=== PATIENT | male | born 1990 | race Caucasian/White ===

== ENCOUNTER 2020-11-06 15:43 | Outpatient (REF) | payer OTHER, SELFPAY | END 2020-11-06 15:44 | disposition home or self-care (01) | LOC: HO.LAB 15:43 | PROVIDERS: Visit Provider Internal Medicine | DX: Z20.828 Contact with and (suspected) exposure to other viral communicable diseases (principal) | CPT/HCPCS: C9803; U0003 ==

== ENCOUNTER 2020-11-09 15:57 | Outpatient (REF) | payer OTHER, SELFPAY | END 2020-11-09 15:58 | disposition home or self-care (01) | LOC: HO.LAB 15:57 | PROVIDERS: Visit Provider Internal Medicine | DX: Z20.828 Contact with and (suspected) exposure to other viral communicable diseases (principal) | CPT/HCPCS: C9803; U0003 ==

== ENCOUNTER 2020-11-16 14:37 | Outpatient (REF) | payer OTHER, SELFPAY | END 2020-11-16 14:38 | disposition home or self-care (01) | LOC: HO.LAB 14:37 | PROVIDERS: PCP Internal Medicine; Visit Provider Internal Medicine | DX: Z20.828 Contact with and (suspected) exposure to other viral communicable diseases (principal) | CPT/HCPCS: C9803; U0003 ==

== ENCOUNTER 2021-01-15 08:47 | Emergency (ER) | payer OTHER, SELFPAY ==
--- NOTE | ~2021-01-15 | CT_ITS ---
EXAMINATION: CT ABDOMEN AND PELVIS WITHOUT CONTRAST CLINICAL INFORMATION: Renal colic. COMPARISON: None TECHNIQUE: Multidetector volumetric imaging was performed from the superior aspect of the liver through the pubic symphysis. Sagittal and coronal reformatted images were obtained on the technologist's workstation. No oral or intravenous contrast. This CT examination was performed using dose optimization techniques as appropriate, variously including the following: *Automated exposure control *Adjustment of mA and/or kV according to patient size (this includes techniques or standardized protocols for targeted exams where dose is matched to indication/reason for exam; i.e. extremities or head) *Use of iterative reconstruction technique DLP: 787 mGy-cm FINDINGS: LUNG BASES: The visualized lung bases are unremarkable. LIVER, GALLBLADDER, AND BILIARY TREE: The liver is normal in size, shape, and attenuation. No focal hepatic lesion or biliary ductal dilatation is present. The gallbladder is unremarkable with no evidence of radiopaque gallstones, gallbladder wall thickening, or obvious pericholecystic inflammatory changes. PANCREAS: Unremarkable. SPLEEN: Unremarkable. ADRENAL GLANDS: Unremarkable. KIDNEYS AND URETERS: There is mild right hydronephrosis and proximal hydroureter secondary to a 4 mm proximal ureteral calculus at level of L3. No perinephric stranding. There are numerous bilateral nonobstructing intrarenal calculi, over 10 on each side, under 5 mm. There is a large cyst upper pole left kidney 7.5 x 6.5 x 7.4 cm, homogeneous water attenuation and incidental punctate rim calcification upper aspect. Smaller cyst interpolar right kidney 1.7 cm, water attenuation. BLADDER: Unremarkable. GASTROINTESTINAL TRACT: There is no bowel obstruction or inflammatory changes in the bowel mesentery. No ascites or fluid collection. The appendix is normal. ABDOMINAL WALL: No significant hernia is appreciated. Borderline fat-containing umbilical hernia under 3 cm. LYMPH NODES: No lymphadenopathy. VASCULAR: Unremarkable. PELVIC VISCERA: Unremarkable. OSSEOUS STRUCTURES: Unremarkable. CT/CT abdomen pelvis wo con IMPRESSION: 1. Mild right hydronephrosis secondary to 4 mm proximal ureteral calculus, level of L3. 2. Numerous bilateral small nonobstructing intrarenal calculi, over 10 on each side. 3. Cyst upper pole left kidney 7.5 cm and interpolar right kidney 1.7 cm.
[2021-01-15 08:50] VITALS: BP 164/105; PULSE 87; RESP 18; TEMP 37.2; O2SAT 97; BMI 36.0
--- NOTE | 2021-01-15 08:59 | ED.GENADULT ---
HPI - General Adult General Chief complaint: Nausea/Vomiting/Diarrhea Stated complaint: KIDNEY STONE Time Seen by Provider: 01/15/21 08:55 Source: patient Mode of arrival: ambulatory Limitations: no limitations History of Present Illness HPI narrative: 30 yo male with past medical history of renal colic here with right flank pain which radiates to RLQ since 6 am with 2 episodes of vomiting, urinary frequency/dsyuria. No diarrhea/fevers/chills. No testicular pain, penile discharge. Related Data Previous Rx's Medication Instructions Recorded hydrocodone-acetaminophen 1 tab PO Q4-6H PRN #10 tab 01/15/21 ibuprofen 800 mg PO Q8H PRN #20 tab 01/15/21 tamsulosin [Flomax] 0.4 mg PO DAILY #30 cap 01/15/21 Allergies Allergy/AdvReac Type Severity Reaction Status Date / Time No Known Allergies Allergy Verified 01/15/21 08:52 Review of Systems Review of Systems: Yes all other systems are reviewed and are negative Constitutional: Constitutional: Reports no additional constitutional complaints, Denies body ache(s), Denies chills, Denies fever(s), Denies headache(s) and Denies weakness Eyes: Eyes: Reports no additional eye complaints and Denies change in vision ENT: Reports system reviewed and no additional complaints, except as documented, Denies dizziness, Denies headache(s), Denies nasal congestion, Denies nasal discharge and Denies neck pain Cardiovascular: Cardiovascular: Reports no additional cardiovascular complaints, Denies chest pain, Denies leg edema and Denies dyspnea Respiratory: Respiratory: Reports no additional respiratory complaints, Denies cough and Denies dyspnea Gastrointestinal: Gastrointestinal: Reports no additional gastrointestinal complaints, Denies abdominal pain, Denies diarrhea, Denies nausea and Reports vomiting Genitourinary: Genitourinary: Denies urinary incontinence Musculoskeletal: Musculoskeletal: Reports no additional musculoskeletal complaints, Reports back pain, Denies arthralgias, Denies joint swelling, Denies neck pain, Denies numbness and Denies tingling Integumentary/Breasts: Skin/Breast: Reports system reviewed and no additional complaints, except as docu and Denies rash Neurologic: Reports system reviewed and no additional complaints, except as documented, Denies Abnormal speech present, Denies dizziness, Denies headache(s), Denies numbness, Denies tingling and Denies weakness [facility] Past Medical History Attestation statement: The following information was validated with the patient. Source: old records reviewed and nursing notes reviewed Medical History Kidney stone No known health problems Social History Social History Advance Directives: No Advance Directives Information Provided: No Physical Exam Vital Signs: Vital Signs: Last Vital Signs Temp 98.9 F 01/15/21 08:50 Pulse 87 01/15/21 08:50 Resp 18 01/15/21 08:50 BP 164/105 H 01/15/21 08:50 Pulse Ox 97 01/15/21 08:50 Body Mass Index 36.0 Const: General: cooperative, healthy appearing, comfortable and no acute distress Orientation/consciousness: patient oriented x3 Limitations: no limitations HENMT: Head: Yes normal to inspection Ears: hearing grossly normal bilaterally General nose exam: Normal external nose present Face and sinus: Yes normal facial exam Mouth: Normal oral and palatal mucosa present Throat: Yes posterior oropharynx normal Eyes: General: appearance normal, both eyes and all related structures Pupils: Equal, round and reactive pupils present Neck: Neck: Yes normal visual inspection Chest: Chest palpation & inspection: normal inspection of the chest Resp: Effort & Inspection: normal respiratory effort Auscultation: clear to auscultation bilaterally Cardio: Rate: regular rate Rhythm: regular rhythm Peripheral pulses: Peripheral pulses 2+ throughout GI: Inspection: Yes normal to inspection Palpation (GI): Soft to palpation and Tenderness to palpation present (GI) (mild RLQ with no rebound or guarding ) Auscultation: normal bowel sounds : General: Yes CVA tenderness (Right ) Back/Spine/Pelvis: Back: CVA tenderness (Right ) Thoracic/Lumbar Spine: thoracic and lumbar spine normal to inspection Skin: General skin exam: no rashes or lesions noted Neuro: General: patient oriented x3, no focal motor deficits and normal sensation to monofilament Cranial nerves: Yes Equal, round and reactive pupils present Cognition (Neuro): normal cognition Speech: No Abnormal speech present Gait exam (Neuro): Normal gait present Motor exam (neuro): 5/5 motor strength present throughout Extrem: General: Yes normal to inspection Course Course Course Narrative: R flank pain with radiation to RLQ since waking with urinary symptoms, vomiting. Will need labs, UA, CT A/P. Provide NSB, analgesia. 1000-CT shows mild right hydro secondary to a 4 mm proximal ureteral stone. Pending labs. UA NOT infected. Patient's pain is improving. 1100-labs unremarkable with exception of mild leukocytosis which is up from vomiting and not from underlying infection. Patient tells me his pain is resolved and he is tolerating p.o.. Will have him discharged and follow up with Urology outpatient. Reviewed worrisome signs and symptoms and when to return to the emergency department. Comfortable discharge home. Medical Decision Making MDM Narrative Medical decision making narrative: Appendicitis, renal colic, pyelo, UTI Medical Records Medical records reviewed: Yes I reviewed the patient's medical records. Lab Data Lab results reviewed: Yes I reviewed the patient's lab results. Result diagrams: 01/15/21 09:11 01/15/21 08:49 Labs: Lab Results 01/15/21 01/15/21 01/15/21 Range/Units 08:49 09:11 09:11 WBC 12.5 H (4.8-10.8) X10*3/uL RBC 5.03 (4.60-5.80) X10*6/uL Hgb 14.7 (14.0-18.0) g/dl Hct 43.0 (42-52) % MCV 85.5 (80-98) fL MCH 29.2 (27.0-33.0) pg MCHC 34.2 (31.0-36.0) g/dl RDW 12.4 (11.0-16.0) % Plt Count 184 (160-400) X10*3/uL MPV 10.8 (9.4-12.4) fL Immature Gran % (Auto) 0.7 H (0.0-0.4) % Neut % (Auto) 61.9 (45-73) % Lymph % (Auto) 27.3 (20-40) % [place] % (Auto) 7.8 (2-11) % Eos % (Auto) 2.2 (0-4) % Baso % (Auto) 0.1 (0-2) % Lymph # (Auto) 3.4 (1.2-4.9) X10*3/uL [place] # (Auto) 1.0 (0.1-1.2) X10*3/uL Eos # (Auto) 0.3 (0.0-0.4) X10*3/uL Baso # (Auto) 0.0 (0.0-0.2) X10*3/uL Abs Immat Gran (auto) 0.09 H (0.00-0.03) X10*3/uL Absolute Neuts (auto) 7.7 (2.0-8.3) X10*3/uL Absolute Nucleated RBC 0.000 (0.0-0.012) X10*3/uL Nucleated RBC % (auto) 0.0 (0.0-0.2) /100WBC Hold Blue Top SEE NOTE Sodium 138 (135-145) mmol/L Potassium 3.4 (3.3-5.1) mmol/L Chloride 105 (96-108) mmol/L Carbon Dioxide 23 (22-29) mmol/L Anion Gap 13 (12-20) BUN 11 (9-16) mg/dL Creatinine 1.05 (0.5-1.4) mg/dL Estim Creat Clear Calc 117.3 Estimated GFR > 60 Random Glucose 103 (60-115) mg/dL Calcium 9.2 (8.4-10.2) mg/dL Total Bilirubin 0.5 (0.0-1.0) mg/dL Direct Bilirubin < 0.2 (0.0-0.5) mg/dL AST 15 (5-37) U/L ALT 20 (0-40) U/L Alkaline Phosphatase 47 (39-117) U/L Total Protein 6.8 (6.5-8.0) g/dL Albumin 4.4 (3.5-5.0) g/dL Urine Color Urine Appearance Urine pH (5.0-8.0) Ur Specific [place] (1.005-1.025) Urine Protein (NEG-TRACE) MG/DL Urine Glucose (UA) (NEG) MG/DL Urine Ketones (NEG) MG/DL Urine Blood (NEG) Urine Nitrite (NEG) Ur Leukocyte Esterase (NEG) Urine RBC (0) /HPF Urine WBC (0-4) /HPF Ur Squamous Epith Cells /LPF Urine Bacteria /LPF Urine Mucus /LPF 02/19/21 Range/Units 09:11 WBC (4.8-10.8) X10*3/uL RBC (4.60-5.80) X10*6/uL Hgb (14.0-18.0) g/dl Hct (42-52) % MCV (80-98) fL MCH (27.0-33.0) pg MCHC (31.0-36.0) g/dl RDW (11.0-16.0) % Plt Count (160-400) X10*3/uL MPV (9.4-12.4) fL Immature Gran % (Auto) (0.0-0.4) % Neut % (Auto) (45-73) % Lymph % (Auto) (20-40) % [place] % (Auto) (2-11) % Eos % (Auto) (0-4) % Baso % (Auto) (0-2) % Lymph # (Auto) (1.2-4.9) X10*3/uL [place] # (Auto) (0.1-1.2) X10*3/uL Eos # (Auto) (0.0-0.4) X10*3/uL Baso # (Auto) (0.0-0.2) X10*3/uL Abs Immat Gran (auto) (0.00-0.03) X10*3/uL Absolute Neuts (auto) (2.0-8.3) X10*3/uL Absolute Nucleated RBC (0.0-0.012) X10*3/uL Nucleated RBC % (auto) (0.0-0.2) /100WBC Hold Blue Top Sodium (135-145) mmol/L Potassium (3.3-5.1) mmol/L Chloride (96-108) mmol/L Carbon Dioxide (22-29) mmol/L Anion Gap (12-20) BUN (9-16) mg/dL Creatinine (0.5-1.4) mg/dL Estim Creat Clear Calc Estimated GFR Random Glucose (60-115) mg/dL Calcium (8.4-10.2) mg/dL Total Bilirubin (0.0-1.0) mg/dL Direct Bilirubin (0.0-0.5) mg/dL AST (5-37) U/L ALT (0-40) U/L Alkaline Phosphatase (39-117) U/L Total Protein (6.5-8.0) g/dL Albumin (3.5-5.0) g/dL Urine Color YELLOW Urine Appearance CLOUDY Urine pH 6.0 (5.0-8.0) Ur Specific [place] >= 1.030 H (1.005-1.025) Urine Protein TRACE (NEG-TRACE) MG/DL Urine Glucose (UA) NEG (NEG) MG/DL Urine Ketones NEG (NEG) MG/DL Urine Blood 3+ H (NEG) Urine Nitrite NEG (NEG) Ur Leukocyte Esterase NEG (NEG) Urine RBC TNTC H (0) /HPF Urine WBC 0-2 (0-4) /HPF Ur Squamous Epith Cells TRACE /LPF Urine Bacteria NONE /LPF Urine Mucus TRACE /LPF Imaging Data CT scan - abdomen: Attestation: I personally reviewed and interpreted this imaging study as follows: Radiologist's impression: 1. Mild right hydronephrosis secondary to 4 mm proximal ureteral calculus, level of L3. 2. Numerous bilateral small nonobstructing intrarenal calculi, over 10 on each side. 3. Cyst upper pole left kidney 7.5 cm and interpolar right kidney 1.7 cm Discharge Plan Discharge Clinical Impression: Renal colic Patient Disposition: Home, Self-Care Instructions: Renal Colic (ED) Additional Instructions: Increase fluids Strain all urine Follow-up with Urology on Monday Your CT also shows an incidental finding of a left renal cyst. You can follow up with your primary care doctor in regards to this Prescriptions: New tamsulosin [Flomax] 0.4 mg capsule 0.4 mg PO DAILY Qty: 30 RF: 0 ibuprofen 800 mg tablet 800 mg PO Q8H PRN (Reason: pain) Qty: 20 RF: 0 hydrocodone-acetaminophen 5-300 mg tablet 1 tab PO Q4-6H PRN (Reason: pain) Qty: 10 RF: 0 Referrals: Rula Jasmine MD [Primary Care Provider] - 2 days Chava Gupta MD [Physician] - 2 days Discharge Date/Time: 01/15/21 11:22
[2021-01-15] MEDS: Ketorolac Tromethamine 30 MG/ML VIAL IVPUSH (09:16)
[2021-01-15] MEDS: 0.9 % Sodium Chloride 1,000 ML 999 ML IV (09:18)
--- NOTE | 2021-01-15 09:20 | PC.NURSE ---
SEEN BY MLP. IV EST 20 G L AC. BLOOD AND URINE TO LAB. MEDICATED PER ORDERS
[2021-01-15 09:40] LABS: MANUAL DIFF FLAG NO
[2021-01-15 09:41] LABS: Appearance Urine CLOUDY; Color Urine YELLOW; Glucose Urine UA NEG (NEG); Leukocyte Esterase Urine NEG (NEG); Nitrite Urine NEG (NEG); Specific Gravity - Urine >= 1.030 (1.005-1.025); Urine Blood 3+ (NEG); Urine Ketones NEG (NEG); Urine Protein TRACE MG/DL (NEG-TRACE)
[2021-01-15 09:43] LABS: Basophils Percent Auto 0.1 % (0-2); Eosinophils Absolute Auto 0.3 X10*3/uL (0.0-0.4); Eosinophils Percent Auto 2.2 % (0-4); Hemoglobin 14.7 g/dl (14.0-18.0); Imm Gran Abs Auto 0.09 X10*3/uL (0.00-0.03); Imm Gran Pct Auto 0.7 % (0.0-0.4); Lymphocytes Absolute Auto 3.4 X10*3/uL (1.2-4.9); Lymphocytes Percent Auto 27.3 % (20-40); Mean Corpuscular HGB Conc 34.2 g/dl (31.0-36.0); Mean Corpuscular Hemoglobin 29.2 pg (27.0-33.0); Mean Corpuscular Volume 85.5 fL (80-98); Mean Platelet Volume 10.8 fL (9.4-12.4); Monocytes Percent Auto 7.8 % (2-11); Neutrophils Absolute Auto 7.7 X10*3/uL (2.0-8.3); Neutrophils Percent Auto 61.9 % (45-73); Platelet Count 184 X10*3/uL (160-400); Red Blood Count 5.03 X10*6/uL (4.60-5.80); Red Cell Distribution Width 12.4 % (11.0-16.0); White Blood Count 12.5 X10*3/uL (4.8-10.8)
[2021-01-15 09:49] LABS: Mucus Urine TRACE /LPF; RBC Urine TNTC /HPF (0); Squamous Epithelial Cell Urine TRACE /LPF; WBC Urine 0-2 /HPF (0-4)
[2021-01-15 10:16] LABS: Alanine Aminotransferase 20 U/L (0-40); Albumin Level 4.4 g/dL (3.5-5.0); Alkaline Phosphatase 47 U/L (39-117); Anion Gap 13 (12-20); Aspartate Amino Transferase 15 U/L (5-37); Bilirubin Direct < 0.2 mg/dL (0.0-0.5); Bilirubin Total 0.5 mg/dL (0.0-1.0); Blood Urea Nitrogen 11 mg/dL (9-16); Calcium 9.2 mg/dL (8.4-10.2); Carbon Dioxide 23 mmol/L (22-29); Chloride 105 mmol/L (96-108); Creatinine Clr Calc Pharmacy 117.3; Estimated Glomerular Filt Rate > 60; Glucose Random 103 mg/dL (60-115); Potassium 3.4 mmol/L (3.3-5.1); Sodium 138 mmol/L (135-145); Total Protein 6.8 g/dL (6.5-8.0)
[2021-01-15] MEDS: Tamsulosin HCL 0.4 MG CAPSULE PO (10:25)
== END 2021-01-15 11:22 | disposition home or self-care (01) ==
PROVIDERS: Nurse Practitioner Family; Emergency Provider Emergency Medicine; PCP Internal Medicine
DX: N23 Unspecified renal colic (principal); R30.0 Dysuria; Z79.899 Other long term (current) drug therapy
CPT/HCPCS: 36415; 74176; 80048; 80076; 81001; 85025; 96361; 96374; 99282; 99284; J1885

== ENCOUNTER 2021-01-16 04:06 | Emergency (ER) | payer OTHER, SELFPAY ==
[2021-01-16 05:24] VITALS: BP 164/108; PULSE 90; RESP 18; TEMP 36.6; O2SAT 95; BMI 36.0
[2021-01-16 05:51] LABS: MANUAL DIFF FLAG NO
[2021-01-16 05:52] LABS: Basophils Percent Auto 0.1 % (0-2); Eosinophils Absolute Auto 0.2 X10*3/uL (0.0-0.4); Eosinophils Percent Auto 1.5 % (0-4); Hematocrit 40.9 % (42-52); Imm Gran Abs Auto 0.07 X10*3/uL (0.00-0.03); Imm Gran Pct Auto 0.4 % (0.0-0.4); Lymphocytes Absolute Auto 2.8 X10*3/uL (1.2-4.9); Lymphocytes Percent Auto 17.7 % (20-40); Mean Corpuscular HGB Conc 34.2 g/dl (31.0-36.0); Mean Corpuscular Hemoglobin 28.9 pg (27.0-33.0); Mean Corpuscular Volume 84.5 fL (80-98); Mean Platelet Volume 10.1 fL (9.4-12.4); Monocytes Absolute Auto 1.3 X10*3/uL (0.1-1.2); Monocytes Percent Auto 8.5 % (2-11); Neutrophils Absolute Auto 11.3 X10*3/uL (2.0-8.3); Neutrophils Percent Auto 71.8 % (45-73); Platelet Count 155 X10*3/uL (160-400); Red Blood Count 4.84 X10*6/uL (4.60-5.80); Red Cell Distribution Width 12.3 % (11.0-16.0); White Blood Count 15.8 X10*3/uL (4.8-10.8)
[2021-01-16 05:53] LABS: Glucose Urine UA NEG (NEG); Leukocyte Esterase Urine NEG (NEG); Nitrite Urine NEG (NEG); PH 5.5 (5.0-8.0); Specific Gravity - Urine 1.025 (1.005-1.025); Urine Blood 3+ (NEG); Urine Ketones NEG (NEG); Urine Protein NEG (NEG-TRACE)
[2021-01-16 05:54] LABS: Appearance Urine CLEAR; Color Urine YELLOW
[2021-01-16 06:00] LABS: Mucus Urine 1+ /LPF; Squamous Epithelial Cell Urine 2+ /LPF; WBC Urine 0-2 /HPF (0-4)
--- NOTE | 2021-01-16 06:15 | ED.MALEGU ---
HPI - Male Genitourinary General Chief complaint: Urogenital-Male Stated complaint: Kidney Stones? Time Seen by Provider: 01/16/21 06:10 Source: patient Mode of arrival: ambulatory Limitations: no limitations History of Present Illness HPI Narrative: Patient comes to emergency room complaining of right flank pain. Patient was seen here yesterday for the same reason. Patient was diagnosed with a 4 mm kidney stone. Patient states after he was discharged, he went home, ate dinner, then the pain got worse. Patient denies hematuria, no fever or chills. Patient states he has history of nephrolithiasis, so far he has been able to pass all the stones without surgical intervention. Related Data Previous Rx's Medication Instructions Recorded hydrocodone-acetaminophen 1 tab PO Q4-6H PRN #10 tab 01/15/21 ibuprofen 800 mg PO Q8H PRN #20 tab 01/15/21 tamsulosin [Flomax] 0.4 mg PO DAILY #30 cap 01/15/21 Allergies Allergy/AdvReac Type Severity Reaction Status Date / Time No Known Allergies Allergy Verified 01/16/21 05:23 Review of Systems Review of Systems: Constitutional : No Weight loss, No Fever, No Chills, No Night Sweats, No Fatigue, No Malaise ENT/Mouth : No Hearing loss, No Ear Pain, No Nasal Congestion, No Sinus Pain, No Hoarseness, No sore throat, No Rhinorrhea, No Swallowing Difficulty Eyes: No Eye Pain, No Swelling, No Redness, No Foreign Body, No Discharge, No Vision Changes Cardiovascular : No Chest Pain, No SOB, No Dyspnea on Exertion, No Orthopnea, No Edema, No Palpitations Respiratory : No Cough, No Sputum, No Wheezing, No Smoke Exposure, No Dyspnea Gastrointestinal : No Nausea, No Vomiting, No Diarrhea, No Constipation, No abdominal Pain, No Hematochezia, No Melena, right-sided flank pain radiating towards the right groin Genitourinary : no irregular bleeding, No Dysuria, No Urinary Frequency, No Hematuria, No Urinary Incontinence, No Urgency, No Flank Pain, No Urinary Flow Changes, No Hesitancy Musculoskeletal : No joint pain, No Myalgias, No Joint Swelling Skin : No Skin Lesions, No rash Neuro : No Weakness, No Numbness, No Paresthesias, No Loss of Consciousness, No Dizziness, No Headache Psych : No Anxiety/Panic, No Depression, No SI/HI/AH/VH, No Social Issues, Heme/Lymph: No Bruising, No Bleeding,No Lymphadenopathy Endocrine : No Polyuria, No Polydipsia, No Temperature Intolerance [facility] Past Medical History Medical History Kidney stone No known health problems Social History Social History Alcohol intake: never Smoked in Last 30 Days: No Use of substances other than those prescribed or required for medical reasons: No Advance Directives: No Physical Exam Vital Signs: Vital Signs: Last Vital Signs Temp 97.9 F 01/16/21 05:24 Pulse 90 01/16/21 05:24 Resp 18 01/16/21 05:24 BP 164/108 H 01/16/21 05:24 Pulse Ox 95 01/16/21 05:24 Body Mass Index 36.0 Appearance: Alert. Oriented X3. Mild to moderate distress due to pain Eyes: Pupils equal, round and reactive to light. ENT: Pharynx normal. Neck: Normal inspection. Neck supple. No lymph nodes noted. No crepitus CVS: Normal heart rate and rhythm. Pulses normal. Normal S1 and S2 Respiratory: No respiratory distress. Breath sounds normal. No Wheezing. No rales Abdomen: Soft and nontender. No rigidity. No distention. good BS x4, positive CVA tenderness on the right side Skin: Skin warm and dry. Normal skin color. Normal skin turgor. Extremities: No lower extremity edema. No lower extremity edema. No Lacerations. No Rash Neuro: Oriented X 3. No motor deficit. No sensory deficit. Moving all extermities. No slurred speech. Course Course Course Narrative: Patient's creatinine is slightly bumped. Patient receiving IV fluids. Patient continues having pain when after 1 dose of Toradol. I discussed the patient with Dr. Gupta. The current plan is to provide the patient with stronger pain medication, if patient feels better, he can still be discharged and follow up with Dr. Gupta, patient is not doing well after IV Dilaudid, he can be admitted to medicine for pain control. The stone is 4 mm, likely to pass by itself MDM - Male Genitourinary Lab Data Result diagrams: 01/16/21 05:47 01/16/21 05:47 Labs: Lab Results 01/16/21 01/16/21 01/16/21 Range/Units 05:47 05:47 05:47 WBC 15.8 H (4.8-10.8) X10*3/uL RBC 4.84 (4.60-5.80) X10*6/uL Hgb 14.0 (14.0-18.0) g/dl Hct 40.9 L (42-52) % MCV 84.5 (80-98) fL MCH 28.9 (27.0-33.0) pg MCHC 34.2 (31.0-36.0) g/dl RDW 12.3 (11.0-16.0) % Plt Count 155 L (160-400) X10*3/uL MPV 10.1 (9.4-12.4) fL Immature Gran % (Auto) 0.4 (0.0-0.4) % Neut % (Auto) 71.8 (45-73) % Lymph % (Auto) 17.7 L (20-40) % [place] % (Auto) 8.5 (2-11) % Eos % (Auto) 1.5 (0-4) % Baso % (Auto) 0.1 (0-2) % Lymph # (Auto) 2.8 (1.2-4.9) X10*3/uL [place] # (Auto) 1.3 H (0.1-1.2) X10*3/uL Eos # (Auto) 0.2 (0.0-0.4) X10*3/uL Baso # (Auto) 0.0 (0.0-0.2) X10*3/uL Abs Immat Gran (auto) 0.07 H (0.00-0.03) X10*3/uL Absolute Neuts (auto) 11.3 H (2.0-8.3) X10*3/uL Absolute Nucleated RBC 0.000 (0.0-0.012) X10*3/uL Nucleated RBC % (auto) 0.0 (0.0-0.2) /100WBC Hold Blue Top SEE NOTE Sodium 140 (135-145) mmol/L Potassium 3.9 (3.3-5.1) mmol/L Chloride 108 (96-108) mmol/L Carbon Dioxide 21 L (22-29) mmol/L Anion Gap 15 (12-20) BUN 12 (9-16) mg/dL Creatinine 1.48 H (0.5-1.4) mg/dL Estim Creat Clear Calc 83.2 Estimated GFR 55 Random Glucose 111 (60-115) mg/dL Calcium 8.9 (8.4-10.2) mg/dL Total Bilirubin 0.5 (0.0-1.0) mg/dL AST 20 (5-37) U/L ALT 21 (0-40) U/L Alkaline Phosphatase 45 (39-117) U/L Total Protein 6.7 (6.5-8.0) g/dL Albumin 4.4 (3.5-5.0) g/dL Urine Color Urine Appearance Urine pH (5.0-8.0) Ur Specific [place] (1.005-1.025) Urine Protein (NEG-TRACE) MG/DL Urine Glucose (UA) (NEG) MG/DL Urine Ketones (NEG) MG/DL Urine Blood (NEG) Urine Nitrite (NEG) Ur Leukocyte Esterase (NEG) Urine RBC (0) /HPF Urine WBC (0-4) /HPF Ur Squamous Epith Cells /LPF Urine Bacteria /LPF Urine Mucus /LPF 01/16/21 Range/Units 05:47 WBC (4.8-10.8) X10*3/uL RBC (4.60-5.80) X10*6/uL Hgb (14.0-18.0) g/dl Hct (42-52) % MCV (80-98) fL MCH (27.0-33.0) pg MCHC (31.0-36.0) g/dl RDW (11.0-16.0) % Plt Count (160-400) X10*3/uL MPV (9.4-12.4) fL Immature Gran % (Auto) (0.0-0.4) % Neut % (Auto) (45-73) % Lymph % (Auto) (20-40) % [place] % (Auto) (2-11) % Eos % (Auto) (0-4) % Baso % (Auto) (0-2) % Lymph # (Auto) (1.2-4.9) X10*3/uL [place] # (Auto) (0.1-1.2) X10*3/uL Eos # (Auto) (0.0-0.4) X10*3/uL Baso # (Auto) (0.0-0.2) X10*3/uL Abs Immat Gran (auto) (0.00-0.03) X10*3/uL Absolute Neuts (auto) (2.0-8.3) X10*3/uL Absolute Nucleated RBC (0.0-0.012) X10*3/uL Nucleated RBC % (auto) (0.0-0.2) /100WBC Hold Blue Top Sodium (135-145) mmol/L Potassium (3.3-5.1) mmol/L Chloride (96-108) mmol/L Carbon Dioxide (22-29) mmol/L Anion Gap (12-20) BUN (9-16) mg/dL Creatinine (0.5-1.4) mg/dL Estim Creat Clear Calc Estimated GFR Random Glucose (60-115) mg/dL Calcium (8.4-10.2) mg/dL Total Bilirubin (0.0-1.0) mg/dL AST (5-37) U/L ALT (0-40) U/L Alkaline Phosphatase (39-117) U/L Total Protein (6.5-8.0) g/dL Albumin (3.5-5.0) g/dL Urine Color YELLOW Urine Appearance CLEAR Urine pH 5.5 (5.0-8.0) Ur Specific [place] 1.025 (1.005-1.025) Urine Protein NEG (NEG-TRACE) MG/DL Urine Glucose (UA) NEG (NEG) MG/DL Urine Ketones NEG (NEG) MG/DL Urine Blood 3+ H (NEG) Urine Nitrite NEG (NEG) Ur Leukocyte Esterase NEG (NEG) Urine RBC 10-14 H (0) /HPF Urine WBC 0-2 (0-4) /HPF Ur Squamous Epith Cells 2+ /LPF Urine Bacteria NONE /LPF Urine Mucus 1+ /LPF Discharge Plan Discharge Clinical Impression: Ureterolithiasis Patient Disposition: Home, Self-Care Instructions: Kidney Stones (ED) Prescriptions: No Action tamsulosin [Flomax] 0.4 mg capsule 0.4 mg PO DAILY Qty: 30 RF: 0 ibuprofen 800 mg tablet 800 mg PO Q8H PRN (Reason: pain) Qty: 20 RF: 0 hydrocodone-acetaminophen 5-300 mg tablet 1 tab PO Q4-6H PRN (Reason: pain) Qty: 10 RF: 0
[2021-01-16 06:23] LABS: Alanine Aminotransferase 21 U/L (0-40); Albumin Level 4.4 g/dL (3.5-5.0); Alkaline Phosphatase 45 U/L (39-117); Anion Gap 15 (12-20); Aspartate Amino Transferase 20 U/L (5-37); Bilirubin Total 0.5 mg/dL (0.0-1.0); Blood Urea Nitrogen 12 mg/dL (9-16); Calcium 8.9 mg/dL (8.4-10.2); Carbon Dioxide 21 mmol/L (22-29); Chloride 108 mmol/L (96-108); Creatinine Clr Calc Pharmacy 83.2; Estimated Glomerular Filt Rate 55; Glucose Random 111 mg/dL (60-115); Potassium 3.9 mmol/L (3.3-5.1); Sodium 140 mmol/L (135-145); Total Protein 6.7 g/dL (6.5-8.0)
[2021-01-16] MEDS: Ketorolac Tromethamine 30 MG/ML VIAL IVPUSH (06:59)
[2021-01-16] MEDS: ondansetron HCL 4 MG/2 ML VIAL IVPUSH (06:59)
--- NOTE | 2021-01-16 07:27 | PC.NURSE ---
pt resting in bed. calm and cooperative. denies pain at this time. iv in r forearm from previous shift patent. pt aware of plan of care and denied having any questions.
[2021-01-16 08:00] VITALS: RESP 18; O2SAT 99
[2021-01-16 08:04] VITALS: RESP 16
[2021-01-16] MEDS: HYDROmorphone HCl 1 MG/ML SYRINGE IVPUSH (08:04)
[2021-01-16] MEDS: predniSONE 20 MG TABLET PO (08:04)
== END 2021-01-16 10:18 | disposition home or self-care (01) ==
PROVIDERS: Emergency Provider Emergency Medicine; PCP Internal Medicine
DX: N13.2 Hydronephrosis with renal and ureteral calculous obstruction (principal); Z87.442 Personal history of urinary calculi
CPT/HCPCS: 36415; 80053; 81001; 85025; 96361; 96374; 96375; 99284; J1170; J1885; J2405

== ENCOUNTER → 2021-01-21 11:29 | Outpatient (BNVA) | payer OTHER, SELFPAY | PROVIDERS: PCP Internal Medicine; Visit Provider Urology | DX: N20.0 Calculus of kidney (principal) | CPT/HCPCS: 99202 ==

== ENCOUNTER 2021-01-26 10:32 | Outpatient (REF) | payer OTHER, SELFPAY ==
[2021-01-26 12:36] LABS: Glucose Urine UA NEG (NEG); Leukocyte Esterase Urine NEG (NEG); Nitrite Urine NEG (NEG); Specific Gravity - Urine >= 1.030 (1.005-1.025); Urine Blood 3+ (NEG); Urine Ketones NEG (NEG); Urine Protein NEG (NEG-TRACE)
[2021-01-26 12:40] LABS: Appearance Urine HAZY; Color Urine YELLOW
[2021-01-26 12:59] LABS: WBC Urine 0-2 /HPF (0-4)
[2021-01-26 13:00] LABS: Squamous Epithelial Cell Urine TRACE /LPF
== END 2021-01-26 10:33 | disposition home or self-care (01) ==
LOC: HO.LAB 10:32
PROVIDERS: PCP Internal Medicine; Visit Provider Urology
DX: N20.0 Calculus of kidney (principal)
CPT/HCPCS: 81001; 87086

== ENCOUNTER 2021-02-08 08:33 | Day surgery (SDC) | payer OTHER, SELFPAY ==
[2021-02-01 16:16] VITALS: BMI 35.2
--- NOTE | 2021-02-05 11:05 | P.CONAN_ITS ---
Documented by User: Frida Sapp 02/05/21 11:06 HPI - Anesthesia Eval Consult details Narrative: 30yo M for Right Cystoscopy, Ureteroroscopy, Retro, Laser PMFSH Active Problems Active Problems: All Active Problems (Updated 02/01/21 @ 16:15 by Ana Boo) Kidney stone (Acute) Past Medical History Medical History (Updated 02/01/21 @ 16:15 by Ana Boo) Anxiety and depression GERD (gastroesophageal reflux disease) Kidney stone No known health problems Surgical History Surgical History (Updated 02/01/21 @ 16:16 by Ana Boo) No significant past surgical history Social History Social History Are you a primary vp care management to a significant other at home: No Do you presently have visiting nurse or other home services: No Alcohol intake: never Smoking Status: Current every day smoker Packs Per Day: 0.75 Cigarettes Per Day: 15.0 Years Smoked: 12 Smoked in Last 30 Days: Yes Patient Interested in Nicotine Replacement: No Use of substances other than those prescribed or required for medical reasons: No Have you been hit, kicked, punched, or otherwise hurt by someone within the past year? If so, by whom?: No Advance Directives: No Advance Directives Information Provided: No Advance Directives on File: No Recently lost weight without trying: No Meds Allergies Allergy/AdvReac Type Severity Reaction Status Date / Time No Known Allergies Allergy Verified 02/01/21 16:16 Home Medications Medication Instructions Recorded Confirmed Last Taken Type doxepin 75 mg capsule 75 mg PO BEDTIME 01/21/21 02/01/21 Unknown History famotidine 40 mg tablet mg PO 01/21/21 Unknown History sertraline 50 mg tablet 50 mg PO DAILY 01/21/21 02/01/21 Unknown History tramadol 50 mg tablet 50 mg PO TID PRN 01/21/21 02/01/21 Unknown History varenicline 1 mg tablet mg PO DIRECTED 01/21/21 Unknown History Exam Exam Date and Time: February 05, 2021 1105 Height,Weight and Vital Signs: Height 5 ft 7 in Weight 102.058 kg Pertinent Lab Results Pertinent Lab Results: Laboratory Tests 01/16/21 01/16/21 05:47 05:47 WBC 15.8 H Hgb 14.0 Hct 40.9 L Plt Count 155 L Sodium 140 Potassium 3.9 Chloride 108 Carbon Dioxide 21 L BUN 12 Creatinine 1.48 H Assessment and Plan Assessment Anesthesia Assessment: Chart Reviewed Documented by User: Raegan Givens 02/08/21 09:11 [facility] Past Medical History Medical History (Updated 02/01/21 @ 16:15 by Ana Boo) Anxiety and depression GERD (gastroesophageal reflux disease) Kidney stone No known health problems Surgical History Surgical History (Updated 02/01/21 @ 16:16 by Ana Boo) No significant past surgical history Social History Social History Are you a primary vp care management to a significant other at home: No Do you presently have visiting nurse or other home services: No Alcohol intake: never Smoking Status: Current every day smoker Packs Per Day: 0.75 Cigarettes Per Day: 15.0 Years Smoked: 12 Smoked in Last 30 Days: Yes Patient Interested in Nicotine Replacement: No Use of substances other than those prescribed or required for medical reasons: No Have you been hit, kicked, punched, or otherwise hurt by someone within the past year? If so, by whom?: No Advance Directives: No Advance Directives Information Provided: No Advance Directives on File: No Recently lost weight without trying: No Meds Allergies Allergy/AdvReac Type Severity Reaction Status Date / Time No Known Allergies Allergy Verified 02/01/21 16:16 Home Medications Medication Instructions Recorded Confirmed Last Taken Type doxepin 75 mg capsule 75 mg PO BEDTIME 01/21/21 02/01/21 Unknown History famotidine 40 mg tablet mg PO 01/21/21 Unknown History sertraline 50 mg tablet 50 mg PO DAILY 01/21/21 02/01/21 Unknown History tramadol 50 mg tablet 50 mg PO TID PRN 01/21/21 02/01/21 Unknown History varenicline 1 mg tablet mg PO DIRECTED 01/21/21 Unknown History Exam Airway Mallampati Class: II TM Dist: >3cm Neck ROM: Full Heart: RRr Lungs: CTA. l Assessment and Plan Assessment Anesthesia Assessment: Anesthesia Plan Discussed and Chart Reviewed Final Anesthetic Review NPO: Yes ASA Class: II Final Preanesthetic Review: No Changes in Pt Med Stat and Consent Obtained/Reviewed Patient Risk: Intermediate Procedure Risk: Intermediate Anesthetic Plan Anesthetic Plan: GA Disposition: Standard PACU
--- NOTE | ~2021-02-08 | FL_ITS ---
EXAMINATION: XR FLUOROSCOPY WITH IMAGES CLINICAL INFORMATION: Right ureteral stone COMPARISON: Previous CT of the abdomen and pelvis December 2020 TECHNIQUE: Fluoroscopy performed by Dr. Chava Gupta. Fluoroscopy time: 1.5 minutes Dose: 45 mGy Images: 1 FINDINGS: Single fluoroscopic image demonstrates contrast opacification of the right renal collecting system and right proximal ureter which are normal-appearing. FL/FL guidance in OR IMPRESSION: Fluoroscopic guidance for right right retrograde exam.
[2021-02-08 08:54] VITALS: BP 131/91; PULSE 94; RESP 16; TEMP 37.2; O2SAT 96
[2021-02-08] MEDS: levoFLOXacin 500 MG TABLET PO (09:05)
[2021-02-08] MEDS: Acetaminophen 325 MG TABLET 650 MG PO ×2 (09:05→12:47)
[2021-02-08] MEDS: Lactated Ringers 1,000 ML 100 ML IVCONT (09:22)
--- NOTE | 2021-02-08 11:20 | MHC.SHP ---
Pre-Procedural Eval Section A The patient is an INPATIENT: No Changes since office visit: No Cold of Flu in the past 2 weeks, No New Medical Problems, No Changes in Medication and No Patient answered all questions The History & Physical has been completed within 30 days and I have reviewed it.: Yes Section B Chief Complaint: kidney stone Allergies: Allergies Allergy/AdvReac Type Severity Reaction Status Date / Time No Known Allergies Allergy Verified 02/01/21 16:16 Plan Diagnosis/Plan: Unchanged I have reviewed the history and physical and performed a pertinent physical examination on my patient. No changes have occurred unless specified. Right-sided ureteroscopy laser lithotripsy stent placement
[2021-02-08 12:30] VITALS: BP 135/87; PULSE 102; RESP 16; TEMP 37; O2SAT 93
--- NOTE | 2021-02-08 12:30 | PM.OP ---
Brief Operative Note Date of Service: 02/08/21 Pre-op diagnosis: Right renal stones Post-op diagnosis: same Procedure: Cystoscopy, retrograde right side, ureteroscopy, laser lithotripsy stone basketing stent placement Implants: Six [place] by 24 cm stent double-J Surgeon: Chava Gupta MD Anesthesia: GLMA Estimated blood loss (mL): 0 Pathology: other Condition: stable Disposition: same day
--- NOTE | 2021-02-08 12:31 | P.OP_ITS ---
Operative Note Operative Note Date of Service: 02/08/21 Narrative: PreOperative Diagnosis: Right renal stones multiple Post Operative Diagnosis: Right renal stones multiple renal calices approximately 4 different locations Procedure: - cystoscopy, right retrograde - right dilatation of ureteric orifice under fluoroscopy - right renal ureteroscopy of multiple different calices, laser lithotripsy, stone basketing - right stent placement Surgeon: Dr Chava Gupta Anesthesia: General Indications for procedure: Is a 30-year-old male. Recurrent stone former. Had 5 mm mid ureteric stone plus multiple stones in right kidney. Has passed ureteric stone. Will still go ahead with ureteroscopy given he has multiple stones with no prior stone analysis. He is aware the risks and benefits. Procedure: After informed consent was verified patient was brought to the operating placed in supine position. Anesthesia was administered per protocol. Patient was placed in modified dorsal lithotomy position and prepped and draped in a sterile fashion. Safety pause time-out and side of surgery confirmed. Antibiotics conf irmed. Twenty-two [place] cystoscope was placed per urethra. No abnormality noted in the anterior posterior urethra. The bladder was examined. He has mild to moderate trabeculation which for a 30-year-old is atypical. This is suggestive of a tight pelvic floor with non relaxation during urination. May benefit from pelvic floor physical therapy. Right ureteric orifice was seen in normal position. This was cannulated. Retrograde examination was performed. No filling defects seen along the right ureter or within the right renal pelvis. Sensor guidewire was placed to the level renal pelvis. The ureteric orifice was dilated with the inner cannula of the ureteric access sheath. The access sheath was then placed. Flexible ureteroscopy was performed. All calyces were examined. He had submucosal stones in every calyx we examined all 5. In each of these we took a laser and we were able to dust the stone from the mucosal inlet. Multiple stones were released from each calyx. Most of these were too small to basket. Some were broken up into small components. After every calyx had been examined in stones had been released pictures have been taken. An a 0 tip basket was then used and stone fragments were sampled which will be sent for analysis. After stone samples have been taken the Sensor guidewire was placed. The access sheath was removed. The flexible ureteral scope was removed. The Sensor guidewire was backloaded into a 22 [place] cystoscope. The cystoscope was advanced and a 6 [place] by 24 cm double-J ureteric stent was placed up to the renal pelvis and the bladder with good confirmation. The bladder was emptied He tolerated the procedure well was extubated in in the operating room transferred in stable condition to recovery. Please make sure that modifier is a placed to identify that multiple stone locations were accessed throughout this procedure. Pathology: Stones Drains: Double-J stent
[2021-02-08 12:35] VITALS: BP 106/64; PULSE 96; RESP 17; O2SAT 95
[2021-02-08 12:40] VITALS: BP 145/94; PULSE 95; RESP 20; O2SAT 95
[2021-02-08 12:45] VITALS: BP 125/92; PULSE 97; RESP 18; O2SAT 96
[2021-02-08] MEDS: oxyCODONE HCl Immed Release 5 MG TABLET PO (12:47)
[2021-02-08] MEDS: Phenazopyridine HCL 100 MG TABLET PO (12:47)
[2021-02-08 13:00] VITALS: BP 134/91; PULSE 83; RESP 18; TEMP 37; O2SAT 96
== END 2021-02-08 13:49 | disposition home or self-care (01) ==
PROVIDERS: PCP Internal Medicine; Visit Provider Urology
PROC: (CPT 52356; principal; 2021-02-08 10:30)
DX: N20.0 Calculus of kidney (principal); Z87.442 Personal history of urinary calculi; K21.9 Gastro-esophageal reflux disease without esophagitis; Z79.899 Other long term (current) drug therapy; F17.210 Nicotine dependence, cigarettes, uncomplicated
CPT/HCPCS: 52356; 82365; 88300; C1758; C1769; C1894; C2617; J1100; J1885; J2250; J2405; J3010; Q9967

== ENCOUNTER 2021-02-09 23:52 | Emergency (ER) | payer OTHER, SELFPAY ==
[2021-02-10 00:23] VITALS: BP 140/90; PULSE 91; RESP 18; O2SAT 98; BMI 35.2
[2021-02-10 01:07] LABS: Glucose Urine UA 100 MG/DL (NEG); Leukocyte Esterase Urine TRACE (NEG); Nitrite Urine POS (NEG); PH 6.5 (5.0-8.0); Specific Gravity - Urine 1.025 (1.005-1.025); UACC Culture Trigger YES; Urine Blood 3+ (NEG); Urine Ketones NEG (NEG); Urine Protein 3+ MG/DL (NEG-TRACE)
[2021-02-10 01:08] LABS: Appearance Urine TURBID; Color Urine BROWN
[2021-02-10 01:17] LABS: Bacteria Urine 1+ /LPF; Squamous Epithelial Cell Urine TRACE /LPF
--- NOTE | 2021-02-10 01:18 | ED.MALEGU ---
HPI - Male Genitourinary General Chief complaint: Urogenital-Male Stated complaint: Post op pain Time Seen by Provider: 02/10/21 00:33 Source: patient Mode of arrival: ambulatory Limitations: no limitations History of Present Illness HPI Narrative: 30 y/o male with history of recurrent kidney stones s/p lithotripsy and stent placement in the right ureter on 02/[address] Gupta who presents to the ED from home with 10/10 right flank pain when he urinates. He reports the pain when he does not have to urinate is 5/10. He has been taking all of his prescribed mediations from Dr. Gupta including Tramadol, Pyridium, Flomax and antibiotics without any improvement. He reports some nausea but no vomiting. He has had some mild chills but does not think he has had any fevers at home. The pain was so severe at home that he came to the ER for further evaluation. MD Complaint: dysuria and other (right flank pain) Onset (ago): day(s) (1) Duration: constant Location: right flank Radiation: abdomen Severity: severe Severity scale (1-10): >10 Quality: sharp Relieving factors: none Exacerbating factors: urination Context: recent surgery Associated symptoms: Reports blood in urine (is on pyridium ) Related Data Sexually active: Yes Home Medications Medication Instructions Recorded Confirmed doxepin 75 mg capsule 75 mg PO BEDTIME 01/21/21 02/01/21 famotidine 40 mg tablet mg PO 01/21/21 sertraline 50 mg tablet 50 mg PO DAILY 01/21/21 02/01/21 tramadol 50 mg tablet 50 mg PO TID PRN 01/21/21 02/01/21 varenicline 1 mg tablet mg PO DIRECTED 01/21/21 Previous Rx's Medication Instructions Recorded ibuprofen 800 mg PO Q8H PRN #20 tab 01/15/21 tamsulosin [Flomax] 0.4 mg PO DAILY #30 cap 01/15/21 phenazopyridine [Pyridium] 100 mg PO TID PRN 4 Days #12 tab 02/08/21 tramadol 50 mg PO Q6H PRN #14 tab 02/08/21 trimethoprim 100 mg PO Q12H 10 Days #20 tab 02/08/21 Allergies Allergy/AdvReac Type Severity Reaction Status Date / Time No Known Allergies Allergy Verified 02/10/21 00:22 Review of Systems Review of Systems: Constitutional: No Fever, +Chills ENT/Mouth: No sore throat, No Rhinorrhea, No Swallowing Difficulty Cardiovascular: No Chest Pain, No SOB Respiratory: No Cough, No Sputum Gastrointestinal: + Nausea, No Vomiting, No Diarrhea, No abdominal Pain Genitourinary: + Dysuria, No Urinary Frequency, + Hematuria Musculoskeletal: No joint pain, No Myalgias Skin: No Skin Lesions, No rash Neuro: No Weakness, No Numbness, No Dizziness, No Headache Psych: + Anxiety/Panic Heme/Lymph: No Bruising, No Lymphadenopathy PMFSH Past Medical History Attestation statement: The following information was validated with the patient. Medical History Anxiety and depression GERD (gastroesophageal reflux disease) Kidney stone No known health problems Surgical History (Updated 02/01/21 @ 16:16 by Ana Boo) No significant past surgical history Social History Social History Alcohol intake: never Smoking Status: Current every day smoker Packs Per Day: 0.75 Cigarettes Per Day: 15.0 Years Smoked: 12 Advance Directives: No Physical Exam Vital Signs: Vital Signs: Last Vital Signs Pulse 91 02/10/21 00:23 Resp 18 02/10/21 00:23 BP 140/90 H 02/10/21 00:23 Pulse Ox 98 02/10/21 00:23 Body Mass Index 35.2 Appearance: Alert. Oriented X3. No acute distress. Eyes: Pupils equal, round and reactive to light. ENT: Pharynx normal. Neck: Normal inspection. Neck supple. CVS: Normal heart rate and rhythm. Pulses normal. Respiratory: No respiratory distress. Breath sounds normal. Abdomen: Soft with mild right sided abdominal pain, +guarding. +CVA tenderness on the right. +BS x4 Skin: Skin warm and dry. Normal skin color. Normal skin turgor. No rashes. Extremities: No lower extremity edema. Neuro: Oriented X 3. Non-focal, steady gait Course Course Course Narrative: 30 y/o male presenting POD #1 after lithotripsy and stent placement with severe right sided flank pain before and during urination consistent with ureteral spasm vs possible stent migration. UA is consistent with infection. Given recent instrumentation will obtain blood cultures and lactic acid. He is afebrile here. Will get lab workup to assess for MACHELLE or leukocytosis. Meds ordered for spasm and pain including oxybutynin & toradol. IV dose of Levaquin ordered given UA findings. Dispo pending results and improvement. Reevaluation(s) Reevaluation #1: Signed out to Dr. Leach who will assume care. MDM - Male Genitourinary Differential Diagnosis Differential diagnosis: Likely urinary tract infection, urethritis and acute retention of urine Medical Records Attestation: I reviewed the patient's medical records. Lab Data Attestation: I reviewed the patient's lab results. Result diagrams: 02/10/21 01:35 02/10/21 01:35 Labs: Lab Results 02/10/21 02/10/21 Range/Units 00:58 01:35 WBC 11.8 H (4.8-10.8) X10*3/uL RBC 4.61 (4.60-5.80) X10*6/uL Hgb 13.6 L (14.0-18.0) g/dl Hct 40.3 L (42-52) % MCV 87.4 (80-98) fL MCH 29.5 (27.0-33.0) pg MCHC 33.7 (31.0-36.0) g/dl RDW 12.7 (11.0-16.0) % Plt Count 153 L (160-400) X10*3/uL MPV 10.2 (9.4-12.4) fL Absolute Nucleated RBC 0.000 (0.0-0.012) X10*3/uL Nucleated RBC % (auto) 0.0 (0.0-0.2) /100WBC Urine Color BROWN Urine Appearance TURBID Urine pH 6.5 (5.0-8.0) Ur Specific [place] 1.025 (1.005-1.025) Urine Protein 3+ H (NEG-TRACE) MG/DL Urine Glucose (UA) 100 H (NEG) MG/DL Urine Ketones NEG (NEG) MG/DL Urine Blood 3+ H (NEG) Urine Nitrite POS H (NEG) Ur Leukocyte Esterase TRACE H (NEG) Urine RBC 76-150 H (0) /HPF Urine WBC 1-4 (0-4) /HPF Ur Squamous Epith Cells TRACE /LPF Urine Bacteria 1+ /LPF Critical Care Time Critical Care Time Critical Care Time: No Discharge Plan Discharge Prescriptions: No Action tamsulosin [Flomax] 0.4 mg capsule 0.4 mg PO DAILY Qty: 30 RF: 0 ibuprofen 800 mg tablet 800 mg PO Q8H PRN (Reason: pain) Qty: 20 RF: 0 phenazopyridine [Pyridium] 100 mg tablet 100 mg PO TID PRN (Reason: spasm) 4 Days Qty: 12 RF: 0 trimethoprim 100 mg tablet 100 mg PO Q12H 10 Days Qty: 20 RF: 0 tramadol 50 mg tablet 50 mg PO Q6H PRN (Reason: pain (scale score 4-6)) Qty: 14 RF: 0
[2021-02-10] MEDS: Ketorolac Tromethamine 30 MG/ML VIAL IVPUSH (01:40)
[2021-02-10] MEDS: levoFLOXacin/D5W 500 MG/100 ML PIGGYBACK 100 MG IV (01:41)
[2021-02-10 01:42] LABS: Baso%MD 0.1 %; Eos%MD 3.6 %; Hematocrit 40.3 % (42-52); Hemoglobin 13.6 g/dl (14.0-18.0); IG%MD 0.6 %; Lymph%MD 37.2 %; Mean Corpuscular HGB Conc 33.7 g/dl (31.0-36.0); Mean Corpuscular Hemoglobin 29.5 pg (27.0-33.0); Mean Corpuscular Volume 87.4 fL (80-98); Mean Platelet Volume 10.2 fL (9.4-12.4); Mono%MD 7.7 %; Neut%MD 50.8 %; Platelet Count 153 X10*3/uL (160-400); Red Blood Count 4.61 X10*6/uL (4.60-5.80); Red Cell Distribution Width 12.7 % (11.0-16.0); White Blood Count 11.8 X10*3/uL (4.8-10.8)
[2021-02-10] MEDS: 0.9 % Sodium Chloride 1,000 ML 999 ML IVCONT (01:46)
[2021-02-10 01:58] LABS: Lactic Acid 0.7 mmol/L (0.5-2.0)
[2021-02-10 02:00] VITALS: BP 141/84; PULSE 76; RESP 16; O2SAT 97
[2021-02-10 02:03] LABS: Band Neutrophils Percent 0 % (3-5); Eosinophils Absolute Manual 0.1 X10*3/UL (0.0-0.8); Eosinophils Percent Manual 1 % (0-4); Lymphocytes Absolute Manual 5.5 X10*3/uL (0.6-4.8); Lymphocytes Percent Manual 47 % (20-40); Monocytes Absolute Manual 0.4 X10*3/uL (0.0-1.2); Monocytes Percent Manual 3 % (2-11); Neutrophils Absolute Manual 5.8 X10*3/uL (2.2-7.9); Neutrophils Percent Manual 49 % (45-73)
[2021-02-10 02:04] LABS: Alanine Aminotransferase 16 U/L (0-40); Albumin Level 4.5 g/dL (3.5-5.0); Alkaline Phosphatase 44 U/L (39-117); Anion Gap 11 (12-20); Aspartate Amino Transferase 10 U/L (5-37); Bilirubin Total 0.4 mg/dL (0.0-1.0); Blood Urea Nitrogen 13 mg/dL (9-16); Calcium 8.8 mg/dL (8.4-10.2); Carbon Dioxide 26 mmol/L (22-29); Chloride 107 mmol/L (96-108); Creatinine Clr Calc Pharmacy 110.8; Estimated Glomerular Filt Rate > 60; Glucose Random 94 mg/dL (60-115); Platelet Estimate NORMAL (NORMAL); Platelet Morphology Comment NORMAL; RBC Morphology NORMAL; Sodium 140 mmol/L (135-145); Total Protein 6.8 g/dL (6.5-8.0)
[2021-02-10 03:39] LABS: CT PCR NOT DETECTED (Not Detect.); NG PCR NOT DETECTED (Not Detect.)
== END 2021-02-10 03:59 | disposition home or self-care (01) ==
PROVIDERS: Physician Assistant; Emergency Provider Student in an Organized Health Care Education/Training Program; PCP Internal Medicine
DX: G89.18 Other acute postprocedural pain (principal); R10.9 Unspecified abdominal pain; F17.200 Nicotine dependence, unspecified, uncomplicated; Z71.6 Tobacco abuse counseling; Z79.899 Other long term (current) drug therapy; Z87.442 Personal history of urinary calculi
CPT/HCPCS: 36415; 80053; 81001; 81003; 83605; 85007; 85027; 87040; 87086; 87491; 87591; 96361; 96365; 96375; 99283; 99284; J1885; J1956

== ENCOUNTER → 2021-02-16 15:05 | Outpatient (BNVA) | payer OTHER, SELFPAY | PROVIDERS: PCP Internal Medicine; Visit Provider Urology | DX: N20.0 Calculus of kidney (principal) | CPT/HCPCS: 52310; 99212 ==

== ENCOUNTER 2023-04-14 18:30 | Emergency (ER) | payer OTHER, SELFPAY ==
--- NOTE | ~2023-04-14 | CT_ITS ---
EXAMINATION: CT ABDOMEN AND PELVIS WITHOUT CONTRAST CLINICAL INFORMATION: Right flank pain. History of lithotripsy. COMPARISON: 01/15/2020 TECHNIQUE: Multidetector volumetric imaging was performed from the superior aspect of the liver through the pubic symphysis. Sagittal and coronal reformatted images were obtained on the technologist's workstation. This CT examination was performed using dose optimization techniques as appropriate, variously including the following: *Automated exposure control *Adjustment of mA and/or kV according to patient size (this includes techniques or standardized protocols for targeted exams where dose is matched to indication/reason for exam; i.e. extremities or head) *Use of iterative reconstruction technique DLP: 580 mGy-cm FINDINGS: LUNG BASES: The visualized lung bases are unremarkable. LIVER, GALLBLADDER, AND BILIARY TREE: Liver normal in size, contour and morphology. Diffuse hepatic steatosis. No focal liver lesions. No biliary dilatation. The gallbladder is unremarkable with no evidence of radiopaque gallstones, gallbladder wall thickening, or obvious pericholecystic inflammatory changes. PANCREAS: Unremarkable. SPLEEN: Unremarkable. ADRENAL GLANDS: Unremarkable. KIDNEYS AND URETERS: The kidneys are normal in size, shape, and attenuation. Numerous bilateral nonobstructive intrarenal calculi redemonstrated, ranging in size from punctate to 4 mm. No ureteral calculi or hydronephrosis. Bilateral simple renal cysts. No follow-up imaging recommended. No perinephric stranding. BLADDER: Unremarkable. GASTROINTESTINAL TRACT: The small and large bowel are unremarkable. The appendix is unremarkable. ABDOMINAL WALL: No significant hernia is appreciated. LYMPH NODES: Normal. VASCULAR: Unremarkable. PELVIC VISCERA: Unremarkable. OSSEOUS STRUCTURES: Unremarkable. CT/CT abdomen pelvis wo IV con IMPRESSION: * Bilateral nonobstructive intrarenal calculi redemonstrated. * No ureteral calculi or hydronephrosis. * Hepatic steatosis.
[2023-04-14 18:59] VITALS: BP 144/98; PULSE 92; RESP 18; TEMP 36.8; O2SAT 98; BMI 27.4
--- NOTE | 2023-04-14 18:59 | ED_ITS ---
HPI - General Adult General Chief complaint: Urogenital-Male Stated complaint: abnormal labs, infection, R Body pain Time Seen by Provider: 04/14/23 21:27 Source: patient Mode of arrival: ambulatory Limitations: no limitations History of Present Illness HPI narrative: 32-year-old male presents to the emergency department with complaints of right- sided flank pain for the past week, patient reports that about a week and half ago he had routine outpatient labs and he was noted to have a elevated white blood cell count, he was advised to come into the emergency department for evaluation. He reports he is nervous because he has a history of kidney stones requiring lithotripsy. Patient denies urinary symptoms, fevers, chills, nausea, vomiting, abdominal pain, chest pain, shortness of breath. Related Data Home Medications Medication Instructions Recorded Confirmed doxepin 75 mg capsule 75 mg PO BEDTIME 01/21/21 02/01/21 famotidine 40 mg tablet mg PO 01/21/21 sertraline 50 mg tablet 50 mg PO DAILY 01/21/21 02/01/21 tramadol 50 mg tablet 50 mg PO TID PRN Pain 01/21/21 02/01/21 varenicline 1 mg tablet mg PO DIRECTED 01/21/21 Previous Rx's Medication Instructions Recorded ibuprofen 800 mg tablet 800 mg PO Q8H PRN pain #20 tabs 01/15/21 tamsulosin 0.4 mg capsule (Flomax) 0.4 mg PO DAILY #30 caps 01/15/21 phenazopyridine 100 mg tablet 100 mg PO TID PRN spasm 4 days #12 02/08/21 (Pyridium) tabs tramadol 50 mg tablet 50 mg PO Q6H PRN pain (scale score 02/08/21 4-6) #14 tabs trimethoprim 100 mg tablet 100 mg PO Q12H 10 days #20 tabs 02/08/21 oxybutynin chloride 5 mg tablet 5 mg PO BID 1 day #2 tabs 02/10/21 oxybutynin chloride 5 mg tablet 5 mg PO BID PRN bladder spasms #10 02/12/21 tabs ketorolac 10 mg tablet 10 mg PO TID PRN pain 5 days #15 04/15/23 tabs Allergies Allergy/AdvReac Type Severity Reaction Status Date / Time No Known Allergies Allergy Verified 02/10/21 00:22 Review of Systems Review of Systems: Constitutional : No Weight loss, No Fever, No Chills, No Fatigue, No Malaise ENT/Mouth : No sore throat, No Rhinorrhea Eyes: No Eye Pain, No Swelling, No Redness Cardiovascular : No Chest Pain, No SOB, No Dyspnea on Exertion, No Orthopnea, No Edema, No Palpitations Respiratory : No Cough, No Sputum, No Wheezing Gastrointestinal : No Nausea, No Vomiting, No Diarrhea, No Constipation, No abdominal Pain, No Hematochezia, No Melena Genitourinary : No Dysuria, No Urinary Frequency, No Hematuria, Musculoskeletal : No joint pain, No Myalgias, No Joint Swelling, + flank pain Skin : No Skin Lesions, No rash Neuro : No Weakness, No Numbness, No Dizziness, No Headache Psych : No Anxiety/Panic, No Depression All other systems reviewed and are negative Yes all other systems are reviewed and are negative [facility] Past Medical History Attestation statement: The following information was validated with the patient. Source: old records reviewed and nursing notes reviewed Medical History Anxiety and depression GERD (gastroesophageal reflux disease) Kidney stone No known health problems Surgical History No significant past surgical history Social History Social History Are you a primary resident care spec to a significant other at home: No Do you presently have visiting nurse or other home services: No Alcohol intake: current Alcohol intake frequency: does not drink Cigarette Packs Per Day: 0.75 Cigarettes Per Day: 15.0 Years Smoked: 12 Smoked in Last 30 Days: Yes Use of substances other than those prescribed or required for medical reasons: No Advance Directives: No Advance Directives Information Provided: No Physical Exam ED Vital Signs: Vital Signs - 24 hr 04/14/23 18:59 04/14/23 21:08 Temperature 98.3 F 98 F Pulse Rate 92 79 Respiratory Rate 18 16 Blood Pressure 144/98 H 138/89 Pulse Oximetry 98 100 Oxygen Delivery Method Room Air Room Air BMI result Body Mass Index 27.4 vss Appearance: Alert.? Oriented X3.? No acute distress.? Head: Normocephalic, atraumatic, no step-offs or deformities Eyes: Pupils equal, round and reactive to light.? ENT: Pharynx normal.? Neck: Normal inspection.? Neck supple.? CVS: Normal heart rate and rhythm.? Pulses normal.? Respiratory: No respiratory distress.? Breath sounds normal.? Abdomen: Soft and nontender.? Skin: Skin warm and dry.? Normal skin color.? Normal skin turgor.? Extremities: No lower extremity edema.? No calf ttp. 5/5 strength to bilateral upper and lower extremities Back: + r flank pain TTP Neuro: Oriented X 3.? No motor deficit.? No sensory deficit. CN 2-12 intact Course Course Course Narrative: RME performed by Cailin Dsouza PA-C. Patient is a 32 year old assigned male at presenting to the emergency department with flank pain. Labs ordered. Patient placed back in the waiting room pending room availability and results. Reevaluation(s) Reevaluation #1: CBC with leukocytosis 14.8 however it appears as though patient has a baseline leukocytosis. Chemistry unremarkable. UA without infection. CT of the abdomen pelvis pending. Time: 22:25 Reevaluation #2: CT of the abdomen pelvis with bilateral nonobstructive intrarenal calculi, no ureteral calculi or hydronephrosis. Will have him follow-up with urology. Patient feeling better. Educated patient on diagnosis and treatment plan, answered all question, patient verbalizes understanding. At this time patient will be discharged home, advised to return with new or worsening symptoms. Educated on worrisome signs and symptoms and when to return. At this time I feel comfortable discharge home. Time: 01:40 Medications Administered Discontinued Medications Generic Name Dose Route Start Last Admin Trade Name Freq PRN Reason Stop Dose Admin Ketorolac Tromethamine 30 mg 04/14/23 22:09 04/14/23 22:25 Ketorolac Tromethamine 30 Mg/Ml Vial IVPUSH 04/14/23 22:10 30 mg ONCE ONE Administration Medical Decision Making Medical Decision Making [facility] Narrative: 32-year-old male history of kidney stones presents with right flank pain. Physical exam with right flank pain on palpation. No saddle paresthesias, ambulating with steady gait. Neuro nonfocal. Concerns for musculoskeletal versus kidney stone. Unlikely cauda equina, epidural abscess, cord compression. Will rule out UTI and electrolyte abnormalities. Plan labs, imaging, urine. Differential Diagnosis Differential Diagnoses: The differential diagnosis associated with the presentation includes Concerns for musculoskeletal versus kidney stone. Unlikely cauda equina, epidural abscess, cord compression. Will rule out UTI and electrolyte abnormalities. Admission/Observation Consideration of admission/observation: Escalation of care including admission/observation considered Lab Data MDM Lab Attestation statement: I reviewed the patient's lab results. 04/14/23 19:33 04/14/23 19:33 Labs: Lab Results 04/14/23 04/14/23 04/14/23 Range/Units 19:33 19:33 19:33 WBC 14.8 H (4.8-10.8) X10*3/uL RBC 5.19 (4.60-5.80) X10*6/uL Hgb 15.5 (14.0-18.0) g/dl Hct 45.7 (42.0-52.0) % MCV 88.1 (80.0-98.0) fL MCH 29.9 (27.0-33.0) pg MCHC 33.9 (31.0-36.0) g/dl RDW 12.4 (11.0-16.0) % Plt Count 188 (160-400) X10*3/uL MPV 10.0 (9.4-12.4) fL Immature Gran % (Auto) 0.4 (0.0-0.4) % Neut % (Auto) 61.6 (45-73) % Lymph % (Auto) 30.3 (20-40) % [place] % (Auto) 5.7 (2-11) % Eos % (Auto) 1.6 (0-4) % Baso % (Auto) 0.4 (0-2) % Lymph # (Auto) 4.5 (1.2-4.9) X10*3/uL [place] # (Auto) 0.8 (0.1-1.2) X10*3/uL Eos # (Auto) 0.2 (0.0-0.4) X10*3/uL Baso # (Auto) 0.1 (0.0-0.2) X10*3/uL Abs Immat Gran (auto) 0.06 H (0.00-0.03) X10*3/uL Absolute Neuts (auto) 9.1 H (2.0-8.3) x10*3/uL Absolute Nucleated RBC 0.000 (0.0-0.012) X10*3/uL Nucleated RBC % (auto) 0.0 (0.0-0.2) /100WBC Sodium 141 (135-145) mmol/L Potassium 4.2 (3.3-5.1) mmol/L Chloride 109 H (96-108) mmol/L Carbon Dioxide 23 (22-29) mmol/L Anion Gap 13 (12-20) BUN 11 (9-16) mg/dL Creatinine 0.90 (0.5-1.4) mg/dL Estim Creat Clear Calc 114.1 Estimated GFR > 60 Random Glucose 101 (60-115) mg/dL Calcium 9.1 (8.4-10.2) mg/dL Magnesium 1.9 (1.6-2.6) mg/dL Total Bilirubin 0.3 (0.0-1.0) mg/dL AST 15 (5-37) U/L ALT 19 (0-40) U/L Alkaline Phosphatase 53 (39-117) U/L Total Protein 6.9 (6.5-8.0) g/dL Albumin 4.4 (3.5-5.0) g/dL Urine Color Yellow Urine Appearance Clear Urine pH 6.0 (5.0-9.0) Ur Specific [place] >= 1.030 H (1.005-1.025) Urine Protein Negative (Neg-Trace) mg/dL Urine Glucose (UA) Negative (Negative) mg/dL Urine Ketones Negative (Negative) mg/dL Urine Blood Negative (Negative) Urine Nitrite Negative (Negative) Ur Leukocyte Esterase Negative (Negative) Independent Interpretation I performed an independent interpretation of an: CT Scan Radiology Impression Discussion of test interpretation with radiology: I have reviewed the radiologist's reading. Core Measures AMI core measures followed: Yes Measure exclusions: not indicated Critical Care Time Critical Care Time Critical Care Time: No Discharge Plan Discharge Clinical Impression: Right flank pain Patient Disposition: Home, Self-Care Instructions: Flank Pain (ED) Additional Instructions: Take your medications as prescribed. If you were prescribed antibiotics today, it is important that you take your medication to their entirety, do not skip any doses, do not finish them early. Follow-up with your primary care provider this week. Return to the emergency department with new or worsening symptoms. Such as fevers, chills, chest pain, shortness of breath, nausea, vomiting, dizziness, headache, vision changes, lethargy In case of emergency call 911 Toradol has been sent to your pharmacy, you tolerated this well in the department. Please take this as prescribed do not take this with ibuprofen, or other NSAIDs, do not mix this with alcohol. Side effects of this medication including increased risk for bleeding and possible kidney injury. CT/CT abdomen pelvis wo IV con IMPRESSION: * Bilateral nonobstructive intrarenal calculi redemonstrated. * No ureteral calculi or hydronephrosis. * Hepatic steatosis. Prescriptions: New ketorolac 10 mg tablet 10 mg PO TID PRN (Reason: pain) 5 Days Qty: 15 0RF No Action oxybutynin chloride 5 mg tablet 5 mg PO BID PRN (Reason: bladder spasms) Qty: 10 0RF tamsulosin [Flomax] 0.4 mg capsule 0.4 mg PO DAILY Qty: 30 0RF ibuprofen 800 mg tablet 800 mg PO Q8H PRN (Reason: pain) Qty: 20 0RF phenazopyridine [Pyridium] 100 mg tablet 100 mg PO TID PRN (Reason: spasm) 4 Days Qty: 12 0RF trimethoprim 100 mg tablet 100 mg PO Q12H 10 Days Qty: 20 0RF tramadol 50 mg tablet 50 mg PO Q6H PRN (Reason: pain (scale score 4-6)) Qty: 14 0RF oxybutynin chloride 5 mg tablet 5 mg PO BID 1 Days Qty: 2 0RF tramadol 50 mg tablet 50 mg PO TID PRN (Reason: Pain) famotidine 40 mg tablet PO sertraline 50 mg tablet 50 mg PO DAILY varenicline 1 mg tablet PO DIRECTED doxepin 75 mg capsule 75 mg PO BEDTIME Referrals: [facility] [place] [facility] [Provider Group] - 3 days Physician,Unknown J [Primary Care Provider] - 2 days Stand Alone Forms: Work/School Release
[2023-04-14 19:37] LABS: MANUAL DIFF FLAG NO
[2023-04-14 19:40] LABS: Basophils Absolute Auto 0.1 X10*3/uL (0.0-0.2); Basophils Percent Auto 0.4 % (0-2); Eosinophils Absolute Auto 0.2 X10*3/uL (0.0-0.4); Eosinophils Percent Auto 1.6 % (0-4); Hematocrit 45.7 % (42.0-52.0); Hemoglobin 15.5 g/dl (14.0-18.0); Imm Gran Abs Auto 0.06 X10*3/uL (0.00-0.03); Imm Gran Pct Auto 0.4 % (0.0-0.4); Lymphocytes Absolute Auto 4.5 X10*3/uL (1.2-4.9); Lymphocytes Percent Auto 30.3 % (20-40); Mean Corpuscular HGB Conc 33.9 g/dl (31.0-36.0); Mean Corpuscular Hemoglobin 29.9 pg (27.0-33.0); Mean Corpuscular Volume 88.1 fL (80.0-98.0); Monocytes Absolute Auto 0.8 X10*3/uL (0.1-1.2); Monocytes Percent Auto 5.7 % (2-11); Neutrophils Absolute Auto 9.1 x10*3/uL (2.0-8.3); Neutrophils Percent Auto 61.6 % (45-73); Platelet Count 188 X10*3/uL (160-400); Red Blood Count 5.19 X10*6/uL (4.60-5.80); Red Cell Distribution Width 12.4 % (11.0-16.0); White Blood Count 14.8 X10*3/uL (4.8-10.8)
[2023-04-14 19:41] LABS: Appearance Urine Clear; Color Urine Yellow; Glucose Urine UA Negative (Negative); Leukocyte Esterase Urine Negative (Negative); Nitrite Urine Negative (Negative); Specific Gravity - Urine >= 1.030 (1.005-1.025); Urine Blood Negative (Negative); Urine Ketones Negative (Negative); Urine Protein Negative (Neg-Trace)
[2023-04-14 20:00] LABS: Alanine Aminotransferase 19 U/L (0-40); Albumin Level 4.4 g/dL (3.5-5.0); Alkaline Phosphatase 53 U/L (39-117); Anion Gap 13 (12-20); Aspartate Amino Transferase 15 U/L (5-37); Bilirubin Total 0.3 mg/dL (0.0-1.0); Blood Urea Nitrogen 11 mg/dL (9-16); Calcium 9.1 mg/dL (8.4-10.2); Carbon Dioxide 23 mmol/L (22-29); Chloride 109 mmol/L (96-108); Creatinine Clr Calc Pharmacy 114.1; Estimated Glomerular Filt Rate > 60; Glucose Random 101 mg/dL (60-115); Magnesium 1.9 mg/dL (1.6-2.6); Potassium 4.2 mmol/L (3.3-5.1); Sodium 141 mmol/L (135-145); Total Protein 6.9 g/dL (6.5-8.0)
[2023-04-14 21:08] VITALS: BP 138/89; PULSE 79; RESP 16; TEMP 36.6; O2SAT 100
[2023-04-14] MEDS: Ketorolac Tromethamine 30 MG/ML VIAL IVPUSH (22:25)
--- NOTE | 2023-04-14 23:55 | PC.NURSE ---
assumed care of pt aox4 no apparent distress resting quietly while on phone
== END 2023-04-15 01:46 | disposition home or self-care (01) ==
PROVIDERS: Physician Assistant Medical; Emergency Provider Emergency Medicine
DX: R10.9 Unspecified abdominal pain (principal); M79.10 Myalgia, unspecified site; F17.210 Nicotine dependence, cigarettes, uncomplicated; Z71.6 Tobacco abuse counseling; Z79.899 Other long term (current) drug therapy
CPT/HCPCS: 36415; 74176; 80053; 81003; 83735; 85025; 96374; 99284; J1885